=== PATIENT | female | born 1995 | race Caucasian/White ===

== ENCOUNTER 2017-07-20 21:32 | Emergency (ER) | payer SELFPAY ==
[~2017-07-20] VITALS: Ht 154.9 cm; Wt 59.5 kg
[2017-07-20 21:56] VITALS: Ht 154.9 cm; Wt 59.5 kg
--- NOTE | 2017-07-21 03:09 | ERD ---
ER Documentation Chief Complaint Chief Complaint states been anxious x 3 hours, suicidal ideations. HPI 2-year-old female states that anxiety for the past 3 hours and is having suicidal ideations. She is hearing voices telling her to kill herself. Denies any fevers chills nausea vomiting or homicidal ideation. ROS All systems reviewed and are negative except as per history of present illness. Allergies Allergies: Coded Allergies: No Known Drug Allergies (Verified Allergy, Unknown, 07/20/17) PMhx/Soc Medical and Surgical Hx: pt denies Surgical Hx History of Surgery: No Hx Miscellaneous Medical Probl: Yes (polycystic ovarian syndrome) Hx Alcohol Use: No (denies) Hx Substance Use: No (denies) Hx Tobacco Use: No (denies) Smoking Status: Never smoker Physical Exam Vitals Vital Signs Date Time Temp Pulse Resp B/P Pulse Ox O2 Delivery O2 Flow Rate FiO2 07/20/17 21:56 98.7 120 20 150/90 99 Physical Exam Const: [] Head: Atraumatic Eyes: Normal Conjunctiva ENT: Normal External Ears, Nose and Mouth. Neck: Full range of motion..~ No meningismus. Resp: Clear to auscultation bilaterally Cardio: Regular rate and rhythm, no murmurs Abd: Soft, non tender, non distended. Normal bowel sounds Skin: No petechiae or rashes Back: No midline or flank tenderness Ext: No cyanosis, or edema Neur: Awake and alert Psych: Normal Mood and Affect Result Diagram: 07/21/17 0004 07/21/17 0004 Results 24 hrs Laboratory Tests Test 07/21/17 00:01 07/21/17 00:04 Serum HCG, Qualitative NEGATIVE White Blood Count 9.910^3/ul Red Blood Count 4.2810^6/ul Hemoglobin 13.2g/dl Hematocrit 39.9% Mean Corpuscular Volume 93.2fl Mean Corpuscular Hemoglobin 30.8pg Mean Corpuscular Hemoglobin Concent 33.1g/dl Red Cell Distribution Width 12.1% Platelet Count 56164^3/UL Mean Platelet Volume 10.3fl Neutrophils % 65.3% Lymphocytes % 25.4% Monocytes % 8.0% Eosinophils % 0.7% Basophils % 0.4% Nucleated Red Blood Cells % 0.0/100WBC Neutrophils # 6.510^3/ul Lymphocytes # 2.510^3/ul Monocytes # 0.810^3/ul Eosinophils # 0.110^3/ul Basophils # 0.010^3/ul Nucleated Red Blood Cells # 0.010^3/ul Sodium Level 143mmol/L Potassium Level 3.8mmol/L Chloride Level 106mmol/L Carbon Dioxide Level 27mmol/L Anion Gap 14 Blood Urea Nitrogen 6mg/dl Creatinine 0.75mg/dl Glucose Level 94mg/dl Calcium Level 9.4mg/dl Total Bilirubin 0.3mg/dl Direct Bilirubin 0.00mg/dl Indirect Bilirubin 0.3mg/dl Aspartate Amino Transf (AST/SGOT) 107IU/L Alanine Aminotransferase (ALT/SGPT) 191IU/L Alkaline Phosphatase 68IU/L Total Protein 7.2g/dl Albumin 4.1g/dl Globulin 3.10g/dl Albumin/Globulin Ratio 1.32 Salicylates Level < 1.0mg/dl Acetaminophen Level < 10.0ug/ml Ethyl Alcohol Level < 10.0mg/dl Procedures/MDM Patient's behavioral symptoms have stabilized while in the department. Patient is medically cleared and appropriate for psychiatric evaluation and work up. No e/o neurologic, toxic, infectious, or metabolic cause. Departure Diagnosis: Primary Impression: Suicidal ideation Condition: Stable LO TAMEZ Jul 21, 2017 03:09
[2017-07-21] MEDS ORDERED: LORA1TAB PO (03:28)
[2017-07-21] MEDS ORDERED: MIRT15TA PO (03:28)
[2017-07-21 03:31] VITALS: BP 111/75; PULSE 76; RESP 15; TEMP 98.6
--- NOTE | 2017-07-21 08:25 | PSY ---
Date/Time of Note Date/Time of Note DATE: 07/21/17 TIME: 08:09 Psychiatric Subjective Eval Consent Pt consented to telemedicine: Yes Subjective Evaluation Patient location: emergency Chief Complaint: states been anxious x 3 hours, suicidal ideations. Reason for consult: anxious History of present illness patient is a 22 yo female who came to the ER who came to the ER due to feeling increasingly depressed and anxious, her brother brought her in after she told him that she has been hurting herself every time she got mad, she would bang her head o cut herself , she denies wanting to or being homicidal, she came to get help for her depression and anxiety that got worst since her boyfriend left her last week for another woman. SHe denies any current or past manic or psychotic symptoms, she denies any past suicidal attempts. no drug or alcohol abuse. she has been having panic attacks , unable to sleep, poor motivation and poor energy. Past psychiatric history none Hospitalization: no Family History denies Medical history Problems Medical Problems: (1) Suicidal ideation Status: Acute Allergies: Coded Allergies: No Known Drug Allergies (Verified Allergy, Unknown, 07/20/17) Substance Abuse Substance use: No known substance abuse Social History Marital status: single Level of education: college DPA/Conservatorship: No Occupation/Assisted: no Psychiatric Objective Eval Review of Systems: Review of Systems: Not Applicable Physical Examination: Physical Examination: Applicable Sleep: Insomnia Appetite: Decreased Energy: Decreased Interest: Decreased Mental Status Examination: Appearance: Groomed Eye Contact: Good Psychomotor Activity: Normal Behavior: Cooperative Speech: Clear AFFECT: Depressed Mood: Anxious Though Process: Linear Thought Content: Normal Suicidal: No Homicidal: No On 72 hour hold: No Orientation: x3 Cognition: Alert Insight: Intact Judgement: Intact Attention Span: Intact Laboratory Results Laboratory Tests Test 07/21/17 00:01 07/21/17 00:04 Serum HCG, Qualitative NEGATIVE White Blood Count 9.910^3/ul Red Blood Count 4.2810^6/ul Hemoglobin 13.2g/dl Hematocrit 39.9% Mean Corpuscular Volume 93.2fl Mean Corpuscular Hemoglobin 30.8pg Mean Corpuscular Hemoglobin Concent 33.1g/dl Red Cell Distribution Width 12.1% Platelet Count 16779^3/UL Mean Platelet Volume 10.3fl Neutrophils % 65.3% Lymphocytes % 25.4% Monocytes % 8.0% Eosinophils % 0.7% Basophils % 0.4% Nucleated Red Blood Cells % 0.0/100WBC Neutrophils # 6.510^3/ul Lymphocytes # 2.510^3/ul Monocytes # 0.810^3/ul Eosinophils # 0.110^3/ul Basophils # 0.010^3/ul Nucleated Red Blood Cells # 0.010^3/ul Sodium Level 143mmol/L Potassium Level 3.8mmol/L Chloride Level 106mmol/L Carbon Dioxide Level 27mmol/L Anion Gap 14 Blood Urea Nitrogen 6mg/dl Creatinine 0.75mg/dl Glucose Level 94mg/dl Calcium Level 9.4mg/dl Total Bilirubin 0.3mg/dl Direct Bilirubin 0.00mg/dl Indirect Bilirubin 0.3mg/dl Aspartate Amino Transf (AST/SGOT) 107IU/L Alanine Aminotransferase (ALT/SGPT) 191IU/L Alkaline Phosphatase 68IU/L Total Protein 7.2g/dl Albumin 4.1g/dl Globulin 3.10g/dl Albumin/Globulin Ratio 1.32 Salicylates Level < 1.0mg/dl Acetaminophen Level < 10.0ug/ml Ethyl Alcohol Level < 10.0mg/dl Assessment and Plan Assessment/Diagnosis Olympia I: mood do nos anxiety do nos Olymp[place] II: deferred [place] III: as per record Olymp[place] IV: poor social support [place] V: gaf 25 Recommendation/Plan Medication Management ativan 1 mg po bid for 2 weeks for anxiety remeron 15 mg po qhs for one month Psychotherapy individual psychotherapy once a week for 45 mn for 6 months YOSELIN COYNE MD Jul 21, 2017 08:19
== END 2017-07-21 04:24 | disposition home or self-care (01) ==
LOC: E/R 21:32
DX: F41.9 Anxiety disorder, unspecified (principal); R45.851 Suicidal ideations; R40.2142 Coma scale, eyes open, spontaneous, at arrival to emergency department; R40.2252 Coma scale, best verbal response, oriented, at arrival to emergency department; R40.2362 Coma scale, best motor response, obeys commands, at arrival to emergency department
CPT/HCPCS: 36415; 80053; 80306; 84703; 85025; Z7502; 99284

== ENCOUNTER 2017-08-03 20:36 | Emergency (ER) | payer MEDICAID, OTHER ==
[~2017-08-03] VITALS: Ht 154.9 cm; Wt 61.6 kg
[~2017-08-03 20:36] MED LIST: LORA1TAB PO; MIRT15TA PO
[2017-08-03 20:39] VITALS: Ht 154.9 cm; Wt 61.6 kg
--- NOTE | 2017-08-03 20:59 | ERD ---
ER Documentation Chief Complaint Chief Complaint Medication refill HPI The patient is a 22-year-old female, with history of anxiety and mood disorder, who presents to the Emergency Department for medication refill. Patient is accompanied by her brother and father. The parent and family report that on 07/20 the patient was brought to the Emergency Department with complaint of increasing depression and anxiety. The patient states that for a "long time" she has been feeling anxious and depression. She notes that when her anxiety and depression worsen, she she usually hurts herself by pinching, hitting or bruising herself. One week prior to her visit, her boyfriend left her for another women, which prompted a worsening of her depression and anxiety. She tried to hurt herself, the same ways that she had in the past, but this time it didn't help. She indicated to her brother one night that she wanted to hurt herself, and therefore she was brought to the Emergency Department by the brother and father for further evaluation. Patient was evaluated by psychiatrist , who placed the patient on Ativan 1 mg PO BID and Remeron 15 mg PO QHS. The patient notes that she has been taking the medications as directed, and her father is administering them to her per instructions. She was advised to follow up with a psychiatrist as an outpatient, and her father notes that the soonest available set appointment is for 08/13/2017. Unfortunately, the patient ran out of her medications, and therefore she and family present requesting a refill of the medications until she can be seen by the psychiatrist. She notes that she still does sometime feel anxious, but that her symptoms have significantly improved from her previous visit. She denies any current suicidal ideation, homicidal ideation, hallucinations, delusions. Denies any current or past manic or psychotic symptoms. Denies any alcohol or illicit drug abuse. No other complaints. ROS All systems reviewed and are negative except as per history of present illness. Medications Home Meds Active Scripts Lorazepam* (Lorazepam*) 1 Mg Tablet, 1 MG PO BID Y for ANXIETY for 11 Days, TAB Prov:CARINA KRUSE PA-C 08/03/17 Mirtazapine* (Mirtazapine*) 15 Mg Tablet, 15 MG PO QHS for 11 Days, TAB Prov:CARINA KRUSE PA-C 11/19/17 Lorazepam* (Lorazepam*) 1 Mg Tablet, 1 MG PO Q12, #28 TAB Prov:LO TAMEZ. 07/21/17 Mirtazapine* (Remeron*) 15 Mg Tablet, 15 MG PO HS, #14 TAB Prov:LO TAMEZ. 07/21/17 Allergies Allergies: Coded Allergies: No Known Drug Allergies (Verified Allergy, Unknown, 08/03/17) PMhx/Soc Medical and Surgical Hx: pt denies Surgical Hx History of Surgery: No Anesthesia Reaction: No Hx Neurological Disorder: No Hx Respiratory Disorders: No Hx Cardiac Disorders: No Hx Psychiatric Problems: Yes (SI, ANXIETY) Hx Miscellaneous Medical Probl: Yes (polycystic ovarian syndrome) Hx Alcohol Use: No (denies) Hx Substance Use: No (denies) Hx Tobacco Use: No (denies) Physical Exam Vitals Vital Signs Date Time Temp Pulse Resp B/P Pulse Ox O2 Delivery O2 Flow Rate FiO2 08/03/17 20:39 98.1 89 20 113/75 98 Physical Exam GENERAL: Well-developed, well-nourished, in no acute distress. HEENT: Head is normocephalic, atraumatic. No scleral pallor or icterus. Conjunctiva pink. Moist mucous membranes. NECK: Supple. RESPIRATORY: Lungs are clear to auscultation bilaterally. Equal breath sounds. Normal expiratory effort. CARDIOVASCULAR: Regular rate and rhythm. S1 and S2 normal. GASTROINTESTINAL: Abdomen is soft, nontender, and nondistended. BACK: No midline tenderness. EXTREMITIES: No clubbing, cyanosis, or edema. Normal skin perfusion. Moving all extremities. Muscle tone is normal. No focal swelling or erythema. NEUROLOGIC: The patient is alert, awake, and oriented x 3. No focal neurologic deficits. INTEGUMENT: Skin is clean, dry and intact. PSYCHIATRIC: Appropriate; Cooperative. Procedures/MDM This is a 22-year-old female who presents to the Emergency Department requesting a medication refill or her Ativan and Remeron (recently prescribed by psychiatrist). The patient has an upcoming psychiatry appointment on 2016 and just needs enough medication until she can be seen. The patient has no acute medical complaints or concerns. She has no associated suicidal ideation, homicidal ideation, delusions, visual or auditory hallucinations. No evidence of acute psychosis or any other emergent medical condition. At this time, the patient will be discharged home with prescriptions for Ativan (1 mg PO BID) and Remeron (15 mg PO QHS) and given strict return precautions for signs of deteriorating or worsening condition. She is advised to follow up with her primary medical provider and psychiatrist for reevaluation and further management or return to the ER sooner for any new or concerning symptoms. At the time of discharge, all questions were answered. Departure Diagnosis: Primary Impression: Encounter for medication refill Additional Impressions: History of anxiety History of depression Condition: Stable Patient Instructions: Lorazepam Oral tablet, Mirtazapine Oral tablet, Taking Medicine Safely Additional Instructions: Call your psychiatrist TOMORROW for an appointment during the next 2-3 days.See the doctor sooner or return here if your condition worsens before your appointment time. CARINA KRUSE PA-C Aug 03, 2017 20:59
[2017-08-03] MEDS ORDERED: MIRT15TA5 PO (21:00)
[2017-08-03] MEDS ORDERED: LORA1TAB PO (21:00)
== END 2017-08-03 21:14 | disposition home or self-care (01) ==
LOC: FTE 20:36
DX: Z76.0 Encounter for issue of repeat prescription (principal); F41.9 Anxiety disorder, unspecified; F32.9 Major depressive disorder, single episode, unspecified
CPT/HCPCS: 99281